=== PATIENT | male | born 1940 | race Caucasian/White ===

== ENCOUNTER 2020-08-28 04:11 | Observation (INO) | payer OTHER ==
[~2020-08-28] VITALS: Ht 170.2 cm; Wt 96.2 kg
[2020-08-28 04:24] VITALS: BP 146/120
[2020-08-28] MEDS ORDERED: ASA81BEC PO (04:54)
[2020-08-28] MEDS ORDERED: BUSPIRONE HCL5 MG PO (04:54)
[2020-08-28] MEDS ORDERED: ZETIA10 MG PO (04:55)
[2020-08-28] MEDS ORDERED: HYDRALAZINE 10M10 MG PO (04:55)
[2020-08-28] MEDS ORDERED: FAMOTIDINE 20 M20 MG PO (04:55)
[2020-08-28] MEDS ORDERED: CARVEDILOL12.5 MG PO (04:55)
[2020-08-28] MEDS ORDERED: COZAAR 25 MG TA25 M1 PO (04:56)
[2020-08-28] MEDS ORDERED: IRON325 M1 PO (04:56)
[2020-08-28 04:57] LABS: ABSOLUTE BASOPHILS 0.1 thou/uL (0.0-0.2); ABSOLUTE EOSINOPHILS 0.3 thou/uL (0.0-0.7); ABSOLUTE MONOCYTES 0.8 thou/uL (0.0-1.2); ABSOLUTE NEUTROPHILS 4.3 thou/uL (1.6-8.1); BASOPHILS 1.5 %; EOSINOPHILS 5.1 %; HEMATOCRIT 45.1 % (42.0-52.0); HEMOGLOBIN 15.4 gm/dL (14.0-18.0); LYMPHOCYTES 15.7 %; MCH 30.2 pg (26.0-34.0); MCHC 34.1 g/dL (28.0-37.0); MCV 88.5 fL (80.0-100.0); MONOCYTES 11.9 %; MPV 8.3 fl. (7.2-11.1); NUCLEATED RBCS 0 /100WBC; PLATELET COUNT* 180 thou/uL (150-400); POLYS 65.8 %; RDW-CV 16.9 % (10.5-14.5); WBC 6.5 thou/uL (4.0-11.0)
[2020-08-28 05:08] LABS: CALCIUM 9.2 mg/dL (8.5-10.1); POTASSIUM 4.5 mmol/L (3.5-5.1)
[2020-08-28 05:13] LABS: URINE BILIRUBIN NEGATIVE (Negative); URINE BLOOD TRACE (Negative); URINE CLARITY CLEAR; URINE COLOR YELLOW; URINE GLUCOSE-RANDOM NEGATIVE (Negative); URINE KETONES NEGATIVE (Negative); URINE LEUKOCYTES-REFLEX NEGATIVE (Negative); URINE NITRITE-REFLEX NEGATIVE (Negative); URINE PROTEIN 1+ (Negative); URINE SPECIFIC GRAVITY 1.025 (1.005-1.030)
[2020-08-28 05:18] LABS: MAGNESIUM 1.5 mg/dL (1.8-2.4); TOTAL BILIRUBIN 1.5 mg/dL (<0.1-1.0); TOTAL PROTEIN 7.1 g/dL (6.4-8.2)
[2020-08-28 09:53] VITALS: BP 175/87
[2020-08-28 10:00] VITALS: BP 187/90
--- NOTE | 2020-08-28 12:14 | EKG ---
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 : 1940 Requested By: Ingrid Calderon Order Number: [id number] MD: Joce Peter Measurements Intervals [place] Rate: 81 P: 10 [place]: 61 QRS: -110 QRSD: 168 T: 39 QT: 444 QTc: 516 Interpretive Statements Sinus rhythm Short [place] interval Right bundle branch block Baseline wander in lead(s) V2 No previous ECG available for comparison Left axis deviation consider left anterior fascicular block or bifascicular block Electronically Signed On 08-28-2020 12:14:08 CDT by Joce Peter [email or web address] <ELECTRONICALLY SIGNED> By: Blanca Peter MD, [facility] 08/28/20 1214 4 0425 Blanca Peter MD, [facility] /EPI
--- NOTE | 2020-08-28 12:15 | EKG ---
[place] [address] ELECTROCARDIOGRAM REPORT Name: CECIL OREILLY Room: [address] M.R.#: [id number] Admission: 08/28/20 Attend Phys: Celina Booker MD Discharge: Date of : 40 Date of Service: 08/28/20520 Report #: [id number] THIS REPORT FOR: //name// [facility] ED Test Date: 2020-08-28 Test Time: 05:21:38 Pat Name: CECIL OREILLY Department: Room: [address] Gender: M Client Representative: DAYA : 1940 Requested By: Ingrid Calderon Order Number: [id number] Reading MD: Joce Peter Measurements Intervals [place] Rate: 84 P: [place]: QRS: -112 QRSD: 153 T: 31 QT: 412 QTc: 488 Interpretive Statements Atrial fibrillation with controlled ventricular response Right bundle branch block with left axis deviation and probable bifascicular block Inferior infarct, old Abnormal lateral Q waves Compared to ECG 08/28/2020 04:25:47 AV block, advanced (high-grade) now present Myocardial infarct finding now present Q waves now present Sinus rhythm no longer present Short [place] interval no longer present Electronically Signed On 08-28-2020 12:15:09 CDT by Joce Peter [email or web address] <ELECTRONICALLY SIGNED> By: Blanca Peter MD, [facility] 08/28/20 1215 0 0 Blanca Peter MD, [facility] /EPI
[2020-08-28 15:40] VITALS: BP 167/80
[2020-08-28 20:00] VITALS: BP 141/76
[2020-08-29 00:22] VITALS: BP 155/69
[2020-08-29 04:46] LABS: CHOLESTEROL 138 mg/dL (<200); HDL CHOLESTEROL 41 mg/dL (>40); LDL CHOLESTEROL 87 mg/dL (<100); TC:HDL 3.4 Ratio (Not establshd); TRIGLYCERIDE 50 mg/dL (<150); VLDL 10 mg/dL (<40)
[2020-08-29 04:47] VITALS: BP 175/82
[2020-08-29 04:51] LABS: SERUM ASSESSMENT CLEAR
[2020-08-29 08:27] VITALS: BP 139/92
--- NOTE | 2020-08-29 14:09 | 2DMMODE ---
[place] [address] 2 D/M-MODE ECHOCARDIOGRAM Name: CECIL OREILLY Room: [address] M.R.#: [id number] Admission: 08/28/20 Attend Phys: Celina Booker MD Discharge: Date of : 40 Date of Service: 08/29/20 1409 Report #: [id number] THIS REPORT FOR: cc: Lew Adair Adam J DO Blick,Salvatore Vidal MD [facility] ~ APPROVED REPORT Study performed: 08/29/2020 10:23:23 EXAM: Comprehensive 2D, Doppler, and color-flow Echocardiogram Patient Location: In-Patient Room #: [facility] Status: routine BSA: 2.07 HR: 81 bpm BP: 139/92 mmHg Rhythm: Atrial Fibrillation Other Information Study Quality: Good Indications Aortic Valve Disease Congestive Heart Failure Mitral Valve Disease 2D Dimensions IVSd: 12.04 (7-11mm) LVOT Diam: 19.60 (18-24mm) LVDd: 50.58 mm PWd: 10.93 (7-11mm) Ascending Ao: 28.04 (22-36mm) LVDs: 34.49 (25-40mm) Aortic Root: 31.53 mm Volumes Left Atrial Volume (Systole) LA ESV Index: 39.20 mL/m2 Aortic Valve AoV Peak Stanford.: 2.23 m/s AO Peak Gr.: 19.90 mmHg LVOT Max P.36 mmHg AO Mean Gr.: 11.08 mmHg LVOT Mean P.05 mmHg LVOT Max V: 1.04 m/s AO V2 VTI: 44.88 cm LVOT Mean V: 0.66 m/[place] [address] 2 D/M-MODE ECHOCARDIOGRAM Name: DENILSONCECIL Room: [address] M.R.#: [id number] Admission: 08/28/20 Attend Phys: Celina Booker MD Discharge: Date of : 40 Date of Service: 08/29/20 1409 Report #: [id number] MIKE (VTI): 1.36 cm2 LVOT V1 VTI: 20.25 cm Mitral Valve MV Mean Gr.: 9.59 mmHg TDI Medial E' Stanford.: 0.05 m/s Lateral E' Stanford.: 0.07 m/s Pulmonary Valve PV Peak Stanford.: 1.09 m/s PV Peak Gr.: 4.73 mmHg Tricuspid Valve RAP Estimate: 5.00 mmHg TR Peak Gr.: 52.27 mmHg RVSP: 57.00 mmHg PA Pressure: 57.00 mmHg Left Ventricle The left ventricle is normal size. There is normal LV segmental wall motion. There is normal left ventricular wall thickness. Left ventricular systolic function is normal. The left ventricular ejection fraction is within the normal range. LVEF is 55-60%. This study is not technically sufficient to allow evaluation of the LV diastolic function due to atrial fibrillation. Right Ventricle The right ventricle is normal size. The right ventricular systolic function is normal. Atria Left atrium is mildly dilated. The right atrium size is normal. Aortic Valve Bioprosthetic aortic valve is present. Mild aortic regurgitation. Mild aortic stenosis. Mitral Valve Severe mitral annular calcification. The mitral valve is normal in structure. Mild mitral regurgitation. Moderate to severe mitral stenosis. Tricuspid Valve The tricuspid valve is normal in structure. Mild tricuspid regurgitation. estimated pa pressure 65 [place] [address] 2 D/M-MODE ECHOCARDIOGRAM Name: DENILSONCECIL Room: [address] Jesenia Ley#: [id number] Admission: 08/28/20 Attend Phys: Celina Booker MD Discharge: Date of : 40 Date of Service: 08/29/20 1409 Report #: [id number] Pulmonic Valve Pulmonic valve is not well visualized. There is no pulmonic valvular regurgitation. Great Vessels The aortic root is normal in size. IVC is normal in size and collapses >50% with inspiration. Pericardium There is no pericardial effusion. <Conclusion> LVEF is 55-60%. Left atrium is mildly dilated. Bioprosthetic aortic valve is present. Mild aortic regurgitation. Mild aortic stenosis. Mild mitral regurgitation. Mild tricuspid regurgitation. estimated pa pressure 65 mm Hg <ELECTRONICALLY SIGNED> By: Salvatore Blair MD, FACC 08/29/20 1409 08 08 Salvatore Blair MD, FACC /INF
[2020-08-29 16:00] VITALS: BP 118/73
[2020-08-29 23:55] VITALS: BP 125/102
[2020-08-30 04:30] VITALS: BP 133/62
[2020-08-30 05:00] LABS: HEMATOCRIT 43.3 % (42.0-52.0); HEMOGLOBIN 14.7 gm/dL (14.0-18.0); MCH 29.6 pg (26.0-34.0); MCHC 33.9 g/dL (28.0-37.0); MCV 87.3 fL (80.0-100.0); MPV 8.4 fl. (7.2-11.1); RBC 4.95 mil/uL (4.50-6.00); RDW-CV 16.4 % (10.5-14.5)
[2020-08-30 05:11] LABS: CALCIUM 8.8 mg/dL (8.5-10.1); POTASSIUM 3.5 mmol/L (3.5-5.1)
--- NOTE | 2020-08-30 07:48 | CON ---
[address] [address] CONSULTATION Name: CECIL OREILLY Room: [address] ADM Jesenia M.R.#: [id number] Admission: 08/28/20 Attend Phys: Celina Booker MD Discharge: Date of : 40 Report #: [id number] THIS REPORT FOR: cc: Lew Adair Adam J DO Biggs, F. Douglas MD [facility] ~ DOC #: [id number] Joce Peter MD [facility] DATE OF CONSULTATION: 08/28/2020 CARDIOLOGY CONSULTATION HISTORY OF PRESENT ILLNESS: I was asked by Dr. Booker to see this 79-year-old white male in cardiology consultation for evaluation and treatment of heart failure with a minimal troponin elevation. This man has a history of coronary artery disease. He is status post coronary artery bypass graft surgery, four-vessel in 1998. He has also had an aortic valve replacement for aortic stenosis in 2008 that was done at [facility]. He has chronic atrial fibrillation. He is status post coronary stents. Those I believe were done at the hospital at the [facility]. He has essential hypertension, hyperlipidemia and rbbn-xt-jzjqncuh mitral stenosis that is uncorrected. He has been having increasing dyspnea on exertion with some 2-pillow orthopnea, but paroxysmal nocturnal dyspnea as well as edema for a year. He has not been seeing a superintendent nonselling, although he has been seen in the past, both at [place] and at [facility]. Last night he awakened from sleep short of breath and became very anxious and was brought to the hospital and was found to be in heart failure. His chest x-ray showed heart failure. There was also cardiomegaly. His BNP was 7610. Troponin elevation initially was 0.15 and then 0.17 and 0.18 at 0440, 0622 and 1020 respectively. The initial one was at 4:40 a.m. and it was 1.5. He did not have any chest pain, however. He has not had chest pain as part of this whole syndrome. This has been going on for a year. He has been given diuretics and now feels much better. He has made a lot of urine and is breathing much easier and actually feels much better than he has felt in some time. He did lose his to AMYID-19 in April and he has been somewhat anxious and depressed. HOME MEDICATIONS: Include aspirin 81 mg daily, buspirone 5 mg b.i.d., carvedilol 12.5 mg b.i.d., Zetia 10 mg daily, Pepcid 20 mg daily, hydralazine 10 mg p.r.n. hypertension he is to take 10 mg p.o. q. 8 hours, ferrous sulfate 325 mg daily, losartan 50 mg daily. ALLERGIES: HE IS ALLERGIC TO PENICILLIN. SOCIAL HISTORY: He does not smoke or drink, but he did [place] [address] [address] CONSULTATION Name: CECIL OREILLY Room: [address] ADM Jesenia Ley#: [id number] Admission: 08/28/20 Attend Phys: Celina Booker MD Discharge: Date of : 40 Report #: [id number] FAMILY HISTORY: His mother of coronary artery disease. Father of a CVA. REVIEW OF SYSTEMS: Positive for the symptoms described in the history of present illness, otherwise negative for some 40 different complaints in 14 different system categories. Please see our review of system form for details and negatives in review of systems. His D-dimer was mildly elevated. A CTA of the chest for pulmonary embolism was negative. D-dimer is 1.27. PHYSICAL EXAMINATION: GENERAL: He presents as a well-developed, well-nourished elderly white male in no acute distress. VITAL SIGNS: His pulse was 80, blood pressure 175/87, respirations 21 and regular, temperature 97.1. HEENT: His head was atraumatic. Eyes clear. NECK: Supple. There is no jugular venous distention or hepatojugular reflux. Thyroid is not enlarged. There is no adenopathy. SKIN: Warm and dry. Mucous membranes are moist. LUNGS: Clear to auscultation and percussion. HEART: Revealed normal first and second heart sound. There is soft S4. There is no S3. There is a 2/6 systolic murmur heard in the mitral area that sounds more like mitral regurgitation than an aortic stenosis murmur. There is a 1/6 systolic ejection murmur in the aortic area. BACK: There is no S4. There is no S3. The rhythm was slightly irregular. ABDOMEN: Soft, flat, nontender. There are no palpable masses and no organomegaly. EXTREMITIES: Reveal no cyanosis or clubbing. There is 2+ pitting edema on the left leg and 1+ on the right leg. NEUROLOGIC: The patient mentated normally, talked normally and moved all extremities normally. NOTE: This man does have chronic atrial fibrillation. He is on aspirin. IMPRESSION: 1. Congestive heart failure that is acute on chronic, probably systolic and diastolic. 2. Coronary artery disease. 3. Status post coronary artery bypass graft surgery, four-vessel. 4. Chronic atrial fibrillation. 5. Status post coronary stents. 6. Status post aortic valve replacement with a bioprosthesis. 7. Essential hypertension. 8. Hyperlipidemia. 9. Mitral stenosis that is mild to moderate. [address] [place] [address] CONSULTATION Name: CECIL OREILLY Room: [address] Jesenia M.R.#: [id number] Admission: 08/28/20 Attend Phys: Celina Booker MD Discharge: Date of : 40 Report #: [id number] 10. Mitral regurgitation that is mild and tricuspid regurgitation that is said to be mild. RECOMMENDATION: He should get an echo and a stress test. We will get another troponin, but I think this elevation is likely due to his heart failure, which is the predominant issue here. He will get a Lexiscan Cardiolite stress test and an echo. Thank you very much for asking me to see the patient. If there are any questions, please feel free to contact me. MD ANNI Zaman DFB/RAN <ELECTRONICALLY SIGNED> By: Blanca Peter MD, ABHINAV 08/30/20 0748 1033 1240F. Joce Peter MD, FACJeanna /nt
--- NOTE | 2020-08-30 11:40 | CARDNUC ---
[place] [address] CARDIAC NUCLEAR IMAGING REPORT Name: CECIL OREILLY Room: [address] M.R.#: [id number] Admission: 08/28/20 Attend Phys: Celina Booker MD Discharge: Date of : 40 Date of Service: 08/30/20 1139 Report #: [id number] THIS REPORT FOR: cc: Lew Adair Adam J DO Liston,Bob Bee MD [facility] ~ APPROVED REPORT Imaging Protocol: Stress Tc-99m/Rest Tc-99m 2 days Study performed: 08/28/2020 11:59:00 Indication: DYSPNEA, ELEVATED TROPONINS, CHF. Patient Location: In-Patient Room #: 206 Stress Tech: Nicky Lewis Stress Nurse: Stacia Lopez RN Ht: 5 ft 7 in Wt: 212 lbs BSA: 2.07 m2 BMI: 33.20 Medical History Medical History: Atrial Fibrillation, CAD s/p CABG, CAD s/p stent, DYSPNEA, ELEVATED TROPONINS, HX CARDIOVERSION, ORTHOPNEA, PND, AORTIC VALVE REPLACEMENT, MITRAL STENOSIS, EDEMA, CARDIOMEGALY, SYSTOLIC MURMUR, RBBB, HTN, HLD, PAST SMOKER, OBESITY. Medications: Hydralazine, Atorvastatin, Carvedilol, Lasix, home meds include ASA 81 mg, Zetia. Allergies: PNC, SHELLFISH Cardiac Risk Factors: Age, HTN, Hyperlipidemia, SOB, AFib, Past Smoker, elevated troponins, CHF, RBBB, systolic murmur, mitral stenosis. Previous Cardiac Procedures: CABG, PCI,Cardioversion, Aortic valve replacement. Pretest Chest Pain Characteristics: No chest pain Exercise History: Sedentary Physical Disabilities: Weakness, instability, systolic murmur. Meds Held (24 hrs): Carvedilol Resting Data Rest SPECT myocardial perfusion imaging was performed in supine position 45 minutes following the intravenous injection of 30.1 mCi of Tc-99m Sestamibi. Time of rest injection: 08:35 The images were gated to evaluate regional [place] [address] CARDIAC NUCLEAR IMAGING REPORT Name: CECIL OREILLY Room: [address] Jesenia Ley#: [id number] Admission: 08/28/20 Attend Phys: Celina Booker MD Discharge: Date of : 40 Date of Service: 08/30/20 1139 Report #: [id number] left ventricular ejection fraction. Administration Route: IV Administration Site: Right AC Pharmacologic Stress Pharmacologic stress test was performed by injecting Regadenoson 0.4 mg IV push over 10-15 seconds immediately followed by the intravenous injection of 33.1 mCi of Tc-99m Sestamibi. Time of stress injection: 13:45 Date: 08/29/2020 Administration Route: IV Administration Site: Right AC Heart Rate at time of stress injection: 135 bpm. Gated Stress SPECT was performed 50 minutes after stress injection. The images were gated to evaluate regional wall motion and calculate left ventricular ejection fraction. Stress Test Details Stress Test: Pharmacologic stress testing performed using 0.4 mg of regadenoson per 5 mL given IV over 10 seconds. Reason for pharmacologic stress test: Weakness, instability, systolic murmur.. HR Max Heart Rate (APMHR): 141 bpm Resting HR: 81 bpm Target HR (85% APMHR): 119 bpm Max HR Achieved: 135 bpm % of APMHR: 95 Recovery HR: 97 bpm BP Resting BP: 161/91 mmHg Max BP: 186/84 mmHg Recovery BP: 152/85 mmHg ECG Resting ECG: Sinus Rhythm, RBBB Stress ECG: Sinus Tachycardia, RBBB ST Change: None Arrhythmia: None Recovery ECG: Sinus Rhythm, RBBB Recovery ST Change: None Recovery Arrhythmia: None Clinical Reason for Termination: Completed protocol Stress Symptoms: Dyspnea, Dizzy. Exercise duration: 00 min 00 [place] [address] CARDIAC NUCLEAR IMAGING REPORT Name: CECIL OREILLY Room: [address] M.RGibran#: [id number] Admission: 08/28/20 Attend Phys: Celina Booker MD Discharge: Date of : 40 Date of Service: 08/30/20 1139 Report #: [id number] Exercise capacity: 1.00 METs The patient tolerated Lexiscan infusion without cardiac symptoms. Nurse Comments A 79 year old male inpatient tolerated a sitting lexiscan Nuclear Stress Test. Recovery unremarkable. Patient was stable and stated he felt good when escorted via wheelchair to Nuclear Medicine for imaging. Stress ECG Conclusion The baseline twelve-lead EKG shows sinus rhythm with right bundle branch block. EKGs obtained during and post Lexiscan infusion show sinus rhythm and sinus tachycardia with right bundle branch block. There were no significant ST segment changes when compared to baseline. There were no stress-induced arrhythmias. Study Quality Study: Good Artifact: No artifact Study Data At rest, the left ventricular ejection fraction was 67%.. Post stress, the left ventricular ejection was 65%.. TID = 0.97. Perfusion Perfusion images obtained at rest and post Lexiscan stress show a small sized severe intensity fixed defect involving the mid to apical inferior wall. No other significant fixed or reversible defects are identified. Wall Motion Global LV systolic function is preserved. There is a septal wall motion abnormality consistent with underlying bundle branch block. Nuclear Conclusion ECG Findings: negative for ischemia Clinical Findings: negative for ischemia Nuclear Findings: negative for ischemia Exercise Capacity: not assessed Left Ventricular Function: Preserved Perfusion study show evidence of prior mid to apical inferior wall infarct. There were no reversible defects to suggest ongoing ischemia. Global LV function is preserved [place] [address] CARDIAC NUCLEAR IMAGING REPORT Name: CECIL OREILLY Room: [address] Jseenia Ley#: [id number] Admission: 08/28/20 Attend Phys: Celina Booker MD Discharge: Date of : 40 Date of Service: 08/30/20 1139 Report #: [id number] abnormalities as outlined above. This is not a high risk study. <Conclusion> The baseline twelve-lead EKG shows sinus rhythm with right bundle branch block. EKGs obtained during and post Lexiscan infusion show sinus rhythm and sinus tachycardia with right bundle branch block. There were no significant ST segment changes when compared to baseline. There were no stress-induced arrhythmias. <ELECTRONICALLY SIGNED> By: Bob Grady MD, FACC 08/30/20 1139 113 113 Bob Grady MD, FACC /INF
[2020-08-30 12:00] VITALS: BP 910/40
[2020-08-30] MEDS ORDERED: ATORVASTATIN CA20 MG PO (13:18)
[2020-08-30] MEDS ORDERED: POTASSIUM20 PO (13:18)
[2020-08-30] MEDS ORDERED: LASIX 40 MG TAB40 M1 PO (13:18)
[2020-08-30 13:40] VITALS: BP 910/40
[2020-08-30 14:19] VITALS: BP 910/40
== END 2020-08-30 14:53 | disposition home or self-care (01) ==
LOC: M.ERS 04:11 → M.2W 06:53 → M.TBA-ER 06:53 → M.2W 10:01
PROVIDERS: Emergency Medicine; Internal Medicine; Internal Medicine Cardiovascular Disease; ADMIT Family Medicine; ATTEND Family Medicine
DX: R06.00 Dyspnea, unspecified (principal); Z20.822 Contact with and (suspected) exposure to COVID-19; I25.10 Atherosclerotic heart disease of native coronary artery without angina pectoris; I10 Essential (primary) hypertension; K21.9 Gastro-esophageal reflux disease without esophagitis; F41.9 Anxiety disorder, unspecified; I11.0 Hypertensive heart disease with heart failure; I50.9 Heart failure, unspecified; E78.5 Hyperlipidemia, unspecified; Z95.1 Presence of aortocoronary bypass graft; I48.20 Chronic atrial fibrillation, unspecified; R74.8 Abnormal levels of other serum enzymes; Z79.82 Long term (current) use of aspirin; Z79.899 Other long term (current) drug therapy

== ENCOUNTER → 2020-10-05 | Outpatient (CLI) | payer OTHER ==
[~2020-10-05] MED LIST: ASA81BEC PO; ATORVASTATIN CA20 MG PO; BUSPIRONE HCL5 MG PO; CARVEDILOL12.5 MG PO; COZAAR 25 MG TA25 M1 PO; FAMOTIDINE 20 M20 MG PO; HYDRALAZINE 10M10 MG PO; IRON325 M1 PO; LASIX 40 MG TAB40 M1 PO; POTASSIUM20 PO; ZETIA10 MG PO
== END ==
LOC: M.ULTRA 11:33
PROVIDERS: ATTEND Family Medicine
DX: I73.9 Peripheral vascular disease, unspecified (principal); M79.672 Pain in left foot; M79.671 Pain in right foot; I10 Essential (primary) hypertension; I25.10 Atherosclerotic heart disease of native coronary artery without angina pectoris; R60.0 Localized edema

== ENCOUNTER 2020-11-20 09:39 | Inpatient (IN) | payer OTHER ==
[~2020-11-20] VITALS: Ht 180.3 cm; Wt 90.3 kg
[2020-11-20 09:41] VITALS: BP 118/55
[2020-11-20] MEDS ORDERED: LASIX 40 MG TAB40 MG PO (09:53)
[2020-11-20 10:08] LABS: ABSOLUTE EOSINOPHILS 0.2 thou/uL (0.0-0.7); ABSOLUTE LYMPHOCYTES 0.9 thou/uL (0.8-5.3); ABSOLUTE MONOCYTES 0.7 thou/uL (0.0-1.2); ABSOLUTE NEUTROPHILS 3.3 thou/uL (1.6-8.1); EOSINOPHILS 4.4 %; HEMATOCRIT 40.1 % (42.0-52.0); HEMOGLOBIN 13.2 gm/dL (14.0-18.0); LYMPHOCYTES 18.1 %; MCH 29.5 pg (26.0-34.0); MCHC 32.8 g/dL (28.0-37.0); MCV 89.7 fL (80.0-100.0); MONOCYTES 12.7 %; MPV 8.9 fl. (7.2-11.1); NUCLEATED RBCS 0 /100WBC; PLATELET COUNT* 114 thou/uL (150-400); POLYS 63.8 %; RBC 4.47 mil/uL (4.50-6.00); WBC 5.1 thou/uL (4.0-11.0)
[2020-11-20 10:16] LABS: CALCIUM 7.9 mg/dL (8.5-10.1); CREATININE 1.1 mg/dL (0.6-1.3); POTASSIUM 4.5 mmol/L (3.5-5.1)
[2020-11-20 10:20] LABS: ALBUMIN 3.2 g/dL (3.4-5.0); TOTAL BILIRUBIN 1.7 mg/dL (<0.1-1.0); TOTAL PROTEIN 6.5 g/dL (6.4-8.2)
[2020-11-20 14:44] VITALS: BP 148/55
[2020-11-20 17:41] VITALS: BP 128/56
--- NOTE | 2020-11-20 18:55 | NUR ---
1700: PT'S TROPONIN LEVELS STILL ELEVATED. RN CALLED PROVIDER AND PROVIDER AWARE OF NEW TROPONIN LEVEL. NO NEW ORDERS AT THIS TIME, CONTINUE TO MONITOR PT. IF PT BECOMES SYMPTOMATIC WITH BRADYCARDIA OR HYPOTENSION, STARTS TO HAVE CHEST PAIN, OR ANY OTHER CARDIAC PHYSIOLOGICAL CHANGES, ALERT PROVIDER AND PLAN OF CARE WILL BE ADJUSTED NECESSARY. PT VSS, DENIES CHEST PAIN, DENIES N/V. PT REMAINS ASYMPTOMATIC AT THIS TIME. WILL CONTINUE TO MONITOR.
[2020-11-20 21:09] VITALS: BP 141/59
[2020-11-21] VITALS (14 sets, daily range): BP systolic 98–1090; BP diastolic 41–106
[2020-11-21 03:55] LABS: ABSOLUTE BASOPHILS 0.1 thou/uL (0.0-0.2); ABSOLUTE EOSINOPHILS 0.3 thou/uL (0.0-0.7); ABSOLUTE LYMPHOCYTES 1.2 thou/uL (0.8-5.3); ABSOLUTE MONOCYTES 0.8 thou/uL (0.0-1.2); ABSOLUTE NEUTROPHILS 3.4 thou/uL (1.6-8.1); BASOPHILS 1.1 %; EOSINOPHILS 4.8 %; HEMOGLOBIN 12.6 gm/dL (14.0-18.0); LYMPHOCYTES 20.1 %; MCH 29.5 pg (26.0-34.0); MCHC 33.2 g/dL (28.0-37.0); MCV 88.9 fL (80.0-100.0); MONOCYTES 14.6 %; MPV 9.2 fl. (7.2-11.1); NUCLEATED RBCS 0 /100WBC; PLATELET COUNT* 102 thou/uL (150-400); POLYS 59.4 %; RBC 4.27 mil/uL (4.50-6.00); RDW-CV 16.7 % (10.5-14.5); WBC 5.7 thou/uL (4.0-11.0)
[2020-11-21 04:26] LABS: ANION GAP 9 mmol/L (7-16); BUN 20 mg/dL (7-18); CALCIUM 8.4 mg/dL (8.5-10.1); CHLORIDE 102 mmol/L (98-107); CHOLESTEROL 87 mg/dL (<200); CO2 24 mmol/L (21-32); GLUCOSE 83 mg/dL (70-99); HDL CHOLESTEROL 39 mg/dL (>40); LDL CHOLESTEROL 42 mg/dL (<100); POTASSIUM 4.4 mmol/L (3.5-5.1); SERUM ASSESSMENT CLEAR; SODIUM 135 mmol/L (136-145); TC:HDL 2.2 Ratio (Not establshd); TRIGLYCERIDE 31 mg/dL (<150); VLDL 6 mg/dL (<40)
--- NOTE | 2020-11-21 06:09 | NUR ---
PT IS ABLE TO COMMUNICATE HIS NEEDS TO STAFF EFFECTIVELY. HE HAS DENIED THE NEED FOR PAIN MEDICATION UP TO THIS TIME. HE HAS DENIED ANY CHEST PAIN UP TO THIS TIME, WELL. HE HAS BEEN NPO SINCE MIDNIGHT FOR A CARDIOLOGY CONSULT TODAY.
--- NOTE | 2020-11-21 11:44 | EKG ---
[place] [address] ELECTROCARDIOGRAM REPORT Name: CECIL OREILLY JR Room: [address] ADM IN [facility].#: [id number] Admission: 11/20/20 Attend Phys: Alex Skinner Discharge: Date of : 40 Date of Service: 11/20/20 0954 Report #: [id number] THIS REPORT FOR: //name// 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 : 1940 Requested By: Leobardo Pineda Order Number: [id number] MD: Mariano Sims Measurements Intervals [place] Rate: 58 P: [place]: QRS: -114 QRSD: 180 T: 24 QT: 532 QTc: 523 Interpretive Statements Atrial fibrillation with a slow ventricular response RBBB and LAFB Baseline wander in lead(s) II,III,aVF Compared to ECG 08/28/2020 05:21:38 Ventricular rate has slowed Myocardial infarct finding no longer present Q waves no longer present Electronically Signed On 11-21-2020 11:44:18 CDT by Mariano Sims [email or web address] <ELECTRONICALLY SIGNED> By: Mariano Sims MD, [facility] 11/21/20 1144 0954 0954 Mariano Sims MD, [facility] /EPI
--- NOTE | 2020-11-21 11:53 | EKG ---
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 ANGEL : 1940 Requested By: Dontae Spears Order Number: [id number] Joaquim MD: Mariano Sims Measurements Intervals [place] Rate: 58 P: [place]: QRS: -114 QRSD: 177 T: 30 QT: 525 QTc: 516 Interpretive Statements Wide QRS rhythm at a mildly bradycardic rate RBBB and LAFB Compared to ECG 11/20/2020 09:54:48 Junctional rhythm is suggestive Electronically Signed On 11-21-2020 11:52:43 CDT by Mariano Sims [email or web address] <ELECTRONICALLY SIGNED> By: Mariano Sims MD, [facility] 11/21/20 1152 0318 0318 Mariano Sims MD, [facility] /EPI
--- NOTE | 2020-11-21 13:45 | 2DMMODE ---
[place] [address] 2 D/M-MODE ECHOCARDIOGRAM Name: DENILSONCECIL REGAN Room: [address] IN [facility]#: [id number] Admission: 11/20/20 Attend Phys: Alex Skinner Discharge: Date of : 40 Date of Service: 11/21/20 1345 Report #: [id number] THIS REPORT FOR: cc: Lew Adair Adam J DO Holkins,Mariano Whitmore MD [facility] ~ APPROVED REPORT Study performed: 11/21/2020 11:34:36 EXAM: Comprehensive 2D, Doppler, and color-flow Echocardiogram Patient Location: In-Patient Room #: [facility] Status: routine BSA: 2.10 HR: 53 bpm BP: 131/58 mmHg Rhythm: NSR Other Information Study Quality: Good Indications Congestive Heart Failure Syncope 2D Dimensions IVSd: 11.49 (7-11mm) LVOT Diam: 18.84 (18-24mm) LVDd: 53.85 mm PWd: 12.84 (7-11mm) Ascending Ao: 27.37 (22-36mm) LVDs: 32.28 (25-40mm) Aortic Root: 33.22 mm Volumes Left Atrial Volume (Systole) LA ESV Index: 50.60 mL/m2 Aortic Valve AoV Peak Stanford.: 2.18 m/s AO Peak Gr.: 19.09 mmHg LVOT Max P.01 mmHg AO Mean Gr.: 11.68 mmHg LVOT Mean P.84 mmHg LVOT Max V: 1.00 m/s AO V2 VTI: 49.83 cm LVOT Mean V: 0.61 m/s MIKE (VTI): 1.31 cm2 LVOT V1 VTI: 23.37 [place] [address] 2 D/M-MODE ECHOCARDIOGRAM Name: CECIL OREILLY JR Room: [address]#: [id number] Admission: 11/20/20 Attend Phys: Alex Skinner Discharge: Date of : 40 Date of Service: 11/21/20 1345 Report #: [id number] Mitral Valve MV Mean Gr.: 10.55 mmHg TDI Lateral E' Stanford.: 0.08 m/s Pulmonary Valve PV Peak Stanford.: 0.83 m/s PV Peak Gr.: 2.76 mmHg Tricuspid Valve RAP Estimate: 15.00 mmHg TR Peak Gr.: 51.41 mmHg RVSP: 66.00 mmHg PA Pressure: 66.00 mmHg Left Ventricle The left ventricle is normal size. There is normal LV segmental wall motion. Mild concentric left ventricular hypertrophy. Left ventricular systolic function is normal. The left ventricular ejection fraction is within the normal range. LVEF is 55-60%. Right Ventricle Right ventricle is mildly dilated. The right ventricular systolic function is normal. Atria Left atrium is moderately dilated. Right atrium is mildly dilated. Aortic Valve Moderate aortic valve sclerosis. Bioprosthetic aortic valve is present. Mild aortic regurgitation. Mild aortic stenosis. Mitral Valve Moderate mitral annular calcification. Mild to moderate mitral regurgitation. No evidence of mitral valve stenosis. Tricuspid Valve The tricuspid valve is normal in structure. Mild tricuspid regurgitation. Moderate pulmonary hypertension. Pulmonic Valve The pulmonary valve is normal in structure. There is no pulmonic valvular regurgitation[place] [address] 2 D/M-MODE ECHOCARDIOGRAM Name: CECIL OREILLY JR Room: [address] IN [facility]#: [id number] Admission: 11/20/20 Attend Phys: Alex Skinner Discharge: Date of : 40 Date of Service: 11/21/20 1345 Report #: [id number] The aortic root is normal in size. IVC is dilated and collapses <50% with inspiration. Pericardium There is no pericardial effusion. <Conclusion> The left ventricle is normal size. Mild concentric left ventricular hypertrophy. Left ventricular systolic function is normal. The left ventricular ejection fraction is within the normal range. LVEF is 55-60%. Right ventricle is mildly dilated. Left atrium is moderately dilated. Right atrium is mildly dilated. Moderate aortic valve sclerosis. Mild aortic regurgitation. Mild aortic stenosis. Moderate mitral annular calcification. Mild to moderate mitral regurgitation. No evidence of mitral valve stenosis. The tricuspid valve is normal in structure. Mild tricuspid regurgitation. Moderate pulmonary hypertension. IVC is dilated and collapses <50% with inspiration. There is no pericardial effusion. There is normal LV segmental wall motion. Bioprosthetic aortic valve is present. <ELECTRONICALLY SIGNED> By: Mariano Sims MD, FACC 11/21/20 1345 1345 1345 Mariano Sims MD, FACC /INF
--- NOTE | 2020-11-21 14:50 | NUR ---
Pt is A&O. Resides at home. Independent. Pt has a cane and walker that he can use for mobility. Hx of [facility]. No hx of SNF. Goal is home at dc. Anticipate dc tomorrow. Pt having heart cath today.
--- NOTE | 2020-11-21 19:33 | NUR ---
Pt on bedrest since angiogram. Bedrest until MN. Muñoz draining clear yellow urine. Pt c/o leaking at muñoz. Muñoz to remain until off bedrest (muñoz placed d/t retention while on bedrest). VSS. Will continue to monitor.
[2020-11-22] VITALS (10 sets, daily range): BP systolic 82–112; BP diastolic 37–73
[2020-11-22 01:14] LABS: HEMATOCRIT 26.2 % (42.0-52.0); MCH 29.8 pg (26.0-34.0); MCHC 33.5 g/dL (28.0-37.0); MCV 88.8 fL (80.0-100.0); NUCLEATED RBCS 0 /100WBC; PLATELET COUNT* 109 thou/uL (150-400); RBC 2.95 mil/uL (4.50-6.00); RDW-CV 16.7 % (10.5-14.5); WBC 6.8 thou/uL (4.0-11.0)
[2020-11-22 01:17] LABS: CALCIUM 7.8 mg/dL (8.5-10.1); CREATININE 1.1 mg/dL (0.6-1.3); POTASSIUM 4.6 mmol/L (3.5-5.1)
[2020-11-22 01:19] LABS: HEMOGLOBIN 8.8 gm/dL (14.0-18.0)
[2020-11-22 04:06] LABS: ABSOLUTE LYMPHOCYTES 0.6 thou/uL (0.8-5.3); ABSOLUTE MONOCYTES 0.2 thou/uL (0.0-1.2)
[2020-11-22 04:07] LABS: PLATELET ESTIMATE DECREASED
--- NOTE | 2020-11-22 04:48 | NUR ---
AT START OF SHIFT NURSE ASSESSED CATH SITES, LEFT GROIN CATH SITE WAS FIRM TO TOUCH, NO BUISING OR DRAINAGE NOTED. WHEN NURSE REASSESSED LT GROIN SITE AGAIN, THE FIRMNESS HAD SPREAD TOWARDS THE THIGHT AND BRUISING WAS NOTED. TENDER TO TOUCH. DR ARIAS WAS NOTIFIED OF THE FINDSINGS AND ORDERED AN H&H AND 1 BOLUS OF FLUIDS. HGB WENT FROM 12.[address] ARIAS WAS NOTIFIED, DR ORDERED ANOTHER H&H IN 6HRS AND TO HOLD LOVENOX. NURSE REPORTED FINDINGS TO CHARGE NURSE AND POT FEEDER.
[2020-11-22 06:50] LABS: HEMOGLOBIN 8.2 gm/dL (14.0-18.0)
[2020-11-22 08:16] LABS: APTT 28.1 Seconds (25.0-31.3); INR 1.3; PROTIME 13.5 Seconds (9.20-11.50)
--- NOTE | 2020-11-22 11:49 | EKG ---
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
--- NOTE | 2020-11-22 12:25 | NUR ---
Heart cath yesterday. Pt developed hemotoma overnight. Anticipate dc in a few days, Therapies ordered.
[2020-11-22 16:04] LABS: HEMATOCRIT 24.8 % (42.0-52.0); HEMOGLOBIN 7.9 gm/dL (14.0-18.0)
--- NOTE | 2020-11-22 16:24 | CARD ---
[address] [address] CARDIAC CATH REPORT Name: CECIL OREILLY JR Room: [address] IN ..#: [id number] Admission: 11/20/20 Attend Phys: Gabriella Prescott Discharge: Date of : 40 Report #: [id number] THIS REPORT FOR: cc: Lew Adair Adam J DO Holkins, John M. MD [facility] ~ APPROVED REPORT Study performed: 11/21/2020 14:18:17 Patient Details Patient Status: In-Patient Room #: [facility] The patient is a 80 year-old male Event Personnel Dr. Mariano Sims MD: Heel Lining Paster Eryn Rivera RN: Attending Psychiatrist Em Burch RN, CVRN-BC: Monitor Vielka Segrua RT(R): Scrub Dr. Sims can filling room sweeper and Dr. Grady clerk supervisor Procedures Performed Coronary Angiogram only., Access Femoral Vein (right), Access Femoral Artery (left), Left femoral access, Access Radial Artery (right) Indication Non-STEMI , Syncope Risk Factors Peripheral Vascular Disease, Hypercholesterolemia, Hypertension, Tobacco History () Previous Procedures/Diagnoses Previous Valve Surgery Procedure Narrative The patient was brought electively to the Cardiac Catheterization Laboratory and was prepped and draped in a sterile manner. The left femoral was infiltrated with 2% Lidocaine subcutaneous anesthesia. A 6 Fr Solomon sheath was inserted into the Left Femoral Artery. Coronary angiography was performed using coronary diagnostic catheters. The right coronary system was accessed and visualized with a 5Fr JR4 RB catheter. The left coronary [place] [address] CARDIAC CATH REPORT Name: CECIL OREILLY JR Room: [address]#: [id number] Admission: 11/20/20 Attend Phys: Gabriella Prescott Discharge: Date of : 40 Report #: [id number] visualized with a 5Fr JL4 catheter. Hemostasis was obtained with manual pressure following sheath removal without any complications. A hematoma occurred. Procedure was technically complex by virtue of severe peripheral vascular disease complicating access. I was unable to achieve access via the right femoral site. The right radial site was accessed but with marked tortuosity in the thoracic aorta making it impossible to rotate and manipulate catheters in the ascending aorta. This approach was abandoned. With Dr. Grady's assistance, we achieved cannulation and access of the central aorta via the left femoral site with a low access point. Following the procedure, there was a moderate size left femoral hematoma which was largely removed via manual compression. A sterile dressing was applied, and the patient was transferred to his room in satisfactory condition Intraoperative Conscious Sedation Sedation start time: 14:51 Case end Time: 17:55 No Sedation Given Fluoro Time: 17.1 minutes Dose: DAP 117040 cGycm2 1529 mGy Contrast Type and Amount: omnipaque 150 Diagnostic Cath Left Main 75% distal left main coronary stenosis LAD 80% proximal with 100% mid vessel occlusion Circumflex 80% proximal with 100% mid vessel occlusion Right Coronary Nondominant vessel with 80% tubular mid vessel narrowing Left Ventriculography Left Ventriculography was not performed. Hemodynamics The aortic pressure is 193/87 mmHg with a mean of 130 mmHg. Conclusion 1. Severe multivessel coronary artery disease characterized by the following: A 75% distal left main coronary artery stenosis B 80% proximal and 100% mid LAD occlusion B 80% proximal and 100% [place] [address] CARDIAC CATH REPORT Name: CECIL OREILLY JR Room: [address]#: [id number] Admission: 11/20/20 Attend Phys: Gabriella Prescott Discharge: Date of : 40 Report #: [id number] D nondominant right coronary artery with 80% tubular mid vessel narrowing 2. Moderate systemic systolic hypertension throughout the study 3. Difficult access with a moderate size left femoral hematoma post procedure Recommendations Cardiac Risk Reduction Program Diagnostic Cath Approved by: Mariano Sims MD Date/Time: 11/22/2020 16:18:26 <ELECTRONICALLY SIGNED> By: Mariano Sims MD, [facility] 11/22/20 1624 1624 1624Mariano Sims MD, FACC /INF
--- NOTE | 2020-11-22 20:50 | NUR ---
ASSUMED CARE OF PT AT 0715, RECEIVED REPORT FROM JUANA HARTMANN. UPON RECEIVING REPORT, THE NIGHT RN INFORMED THIS RN THAT THE PT'S L GROIN SITE HAD A LARGE BRUISE AND WAS SWOLLEN, THE BRUISE WENT DOWN TO THE PT'S INNER THIGH. THIS RN THEN WENT TO THE BEDSIDE TO LOOK AT THE PT'S GROIN SITE. THE PT'S L GROIN WAS EDEMATOUS, BRUISED, TENDER TO TOUCH, AND TAUNT FROM FLUID/PRESSURE. CARDIOLOGY AND HOSPITALIST STEPHON AND SHAHRIAR HADDAD IS AT THE BEDSIDE. THIS RN BEGAN TO HOLD PRESSURE TO THE L GROIN SITE. PT'S BP IS SOFT WITH A READING OF 84/49, HR; 62. PT APPEARS PALE IN APPEARANCE AND CONFUSED. PT IS A&OX1 TO SELF WITH CONFUSION AND AGITATION. PT RECEIVED SEDATION THE DAY PRIOR FOR THE CARDIAC CATH PROCEDURE AND THE PT'S DAUGHTER, CHEY, INFORMED THIS RN THAT SEDATION WILL CAUSE THE PT TO HAVE A GREAT AMOUNT OF CONFUSION FOR A DAY OR SO AFTER RECEIVING THE MEDICATION. UNSURE IF THE CONFUSION IS FROM THE LOW BLOOD PRESSURE OR IF THE CONFUSION IS FROM TME MEDICATION HE RECEIVED THE DAY PRIOR. PT IS AFEBRILE, HAS COMPLAINTS OF PAIN TO THE L GROIN SITE, PT ON BEDREST TO STOP BLEEDING. LUNGS ARE CLEAR/DIMINISHED, RA, SPO2 95% AND GREATER, RESPIRATIONS ARE REGULAR. S1S2 HEARD, PT HAS PALPABLE RADIAL PULSES, BUT DOPPLED THE BILAT PEDAL PULSES, L PEDAL PULSES ARE WEAKER THAN THE R. PT IN AFIB WITH BBB, HR IN THE 60S, AND BPS SOFT; 80S/40S. HYPOACTIVE BSx4, DISTANT SOUNDING D/T BLOOD VOLUME AND HEMATOMA. PT HAS A VALDIVIA TO DEPENDENT DRAINAGE WITH NO LOOPS OR KINKS. URINE IS DARK YELLOW TO TEA COLORED. WILL MONITOR CLOSELY TO ENSURE PT IS ABLE TO EMPTY BLADDER FULLY WITH HEMATOMA. PT IS CONTINENT OF BOTH BOWEL AND BLADDER. OTHER THAN THE SURGICAL PUNCTURE SITES AND HEMATOMA, NO SKIN ISSUES. PT DOES HAVE A SKIN TEAR TO THE L GROIN FROM DRESSING BEING PULLED OFF. ONE UNIT OF pRBCS ORDERED AND TO BE INFUSED. ONCE INFUSED WILL RECHECK THE H/H FOR HEMO STATUS, THEN WILL MOST LIKELY TRANSFUSE A SECOND UNIT OF pRBCS. HEMATOMA OUTLINED AND MONITOR TO SEE HOW FAST HEMATOMA IS GROWING. US ORDERED AND JUANA MERIDA INFORMED ULTRASOUND THAT A STAT ULTRASOUND NEEDED IN PT'S ROOM TO EVALUATE HEMATOMA. JUANA MERIDA PLACED A 18G RFA PIV FOR BLOOD TRANSFUSION. RN MONITORING CLOSELY. WILL CONTINUE TO MONITOR AND MAKE CHANGES NECESSARY. GREETING CARD MAKER AT THE BEDSIDE. THIS RN CALLED AND RECEIVED CONSENT FROM PT'S DPOA FOR BLOOD AND UPDATED FAMILY ON THE PT'S CONDITION AND EVENTS AND CARE PLAN. FAMILY AGREEABLE AND WILL CONTINUE TO MONITOR.
--- NOTE | 2020-11-22 22:30 | NUR ---
The patient is alert to self. afib on the monitor. transfers x2. rt groin incision dressing intact. left groin incision hematoma continues. No bleeding. left leg swellinig noted. pulses with doppler.
[2020-11-23] VITALS (7 sets, daily range): BP systolic 102–125; BP diastolic 37–50
[2020-11-23 05:29] LABS: HEMOGLOBIN 8.5 gm/dL (14.0-18.0)
[2020-11-23 05:37] LABS: CALCIUM 7.8 mg/dL (8.5-10.1); POTASSIUM 5.3 mmol/L (3.5-5.1)
--- NOTE | 2020-11-23 13:50 | NUR ---
Anticipate dc in a few days. Therapies to see once cleared by cardiology.
--- NOTE | 2020-11-23 18:02 | NUR ---
ASSUMED CARE OF PT AT 0730. PT A&0X4, COMPLAINED OF PAIN TO LEFT GROIN THIS AFTERNOON-TREATED WITH PRN TYLENOL WITH RELIEF. PT UP RECLINER FOR MEALS TODAY-TOLERATED WELL. TRACING AFIB ON THE MACHINE FASTENER. ON RA SAT UPPER 90'S. DENIES ANY SHORTNESS OF BREATH. VALDIVIA TO DEPENDENT DRAINAGE. PT UP WITH 1 ASSIST-WEAKNESS NOTED. CARDIO CONSULT IN PLACE. ONE DOSE IV LASIX GIVEN THIS AFTERNOON. AM ASSESSMENT CHARTED. MEDS PER MAR. CALL LIGHT WITHIN REACH. WILL CONTINUE PLAN OF CARE.
--- NOTE | 2020-11-23 20:00 | NUR ---
RECEIVED REPORT AND ASSUMED CARE OF PT, ASSESSMENT COMPLETED. SITTING UP IN RECLINER WITH FEET ELEVATED. LT GROIN REMAINS BRUISED AND TIGHT, NOT OUTSIDE OF MARKED LINES. ABLE TO DO PEDAL PUSHES BUT PAIN WITH MOVEMENT. SCROTAL EDEMA AND BRUISING NOTED. TELEMETRY ON SHOWING A-FIB WITH BBB. PT DISCUSSING HE WILL GO HOME ON SATURDAY OR SATURDAY. WILL CONT TO MONITOR AND ASSIST NEEDED.
[2020-11-24] VITALS (7 sets, daily range): BP systolic 117–147; BP diastolic 47–62
--- NOTE | 2020-11-24 06:30 | NUR ---
SLEPT WELL TONIGHT IN RECLINER. NO CHANGE IN ASSESSMENT. NO COMPLAINTS OF DISCOMFORT. HS GOALS OF REST AND SAFETY ACHIEVED.
[2020-11-24 07:20] LABS: HEMATOCRIT 24.9 % (42.0-52.0); HEMOGLOBIN 8.2 gm/dL (14.0-18.0); MCH 29.8 pg (26.0-34.0); MCV 90.1 fL (80.0-100.0); MPV 8.8 fl. (7.2-11.1); RBC 2.77 mil/uL (4.50-6.00); RDW-CV 16.7 % (10.5-14.5); WBC 12.4 thou/uL (4.0-11.0)
[2020-11-24 07:28] LABS: CALCIUM 7.8 mg/dL (8.5-10.1); POTASSIUM 4.1 mmol/L (3.5-5.1)
--- NOTE | 2020-11-24 12:50 | NUR ---
ASSUMED CARE OF PT AT 0730. PT A&0X4, DENIES ANY PAIN OR SHORTNESS OF BREATH AT THIS TIME. PT TRACING AFIB BBB ON THE SANFORIZER. LEFT GROIN HEMATOMA NOTED-NO FURTHER EXTENSION NOTED OUTSIDE OF LINE MARKINGS. ON RA SAT UPPER 90'S. PT UP WITH 1 ASSIST TO BSC. VALDIVIA TO DEPENDENT DRAINAGE. CARDIO CONSULT IN PLACE. PT GOAL FOR TODAY IS INCREASE ACTIVITY-UP TO CHAIR FOR MEALS AND WORK WITH THERAPIES AND IV STEROIDS. AM ASSESSMENT CHARTED. MEDICATIONS PER MAY. PT REPOSITIONS SELF WITH REMINDERS. HOURLY ROUNDING OBSERVED. BED IN LOW POSITION. CALL LIGHT WITHIN REACH. WILL CONTINUE PLAN OF CARE.
--- NOTE | 2020-11-24 15:12 | NUR ---
CM spoke with Pt's dtr, dtr adament that Pt dc to ARU. CM explained ARU qualifications, ARU consulted. Therapies to follow. CM informed dtr that if insurance denies, plan would be for SNF, unless family ok with Pt discharging to home.
[2020-11-25] VITALS: BP 142/67
[2020-11-25 04:00] VITALS: BP 138/62
[2020-11-25 08:20] LABS: HEMATOCRIT 25.6 % (42.0-52.0); HEMOGLOBIN 8.4 gm/dL (14.0-18.0); MCH 29.9 pg (26.0-34.0); MCHC 32.8 g/dL (28.0-37.0); MPV 8.6 fl. (7.2-11.1); RBC 2.82 mil/uL (4.50-6.00); RDW-CV 16.4 % (10.5-14.5); WBC 12.9 thou/uL (4.0-11.0)
[2020-11-25 09:20] LABS: CREATININE 0.9 mg/dL (0.6-1.3)
[2020-11-25 09:30] VITALS: BP 120/49
--- NOTE | 2020-11-25 09:33 | EKG ---
[place] [address] ELECTROCARDIOGRAM REPORT Name: CECIL OREILLY JR Room: [address] ADM IN .R.#: [id number] Admission: 11/20/20 Attend Phys: Alex Skinner Discharge: Date of : 40 Date of Service: 11/24/20924 Report #: [id number] THIS REPORT FOR: //name// [facility] Test Date: 2020-11-24 Test Time: 09:25:52 Pat Name: CECIL OREILLY Department: Room: [address] Gender: M Digital Coordinator: : 1940 Requested By: Ebony Rowland Order Number: [id number] Joaquim MD: Mariano Sims Measurements Intervals [place] Rate: 67 P: [place]: QRS: -112 QRSD: 179 T: 41 QT: 478 QTc: 505 Interpretive Statements Atrial fibrillation RBBB and LAFB Baseline wander in lead(s) V6 Compared to ECG 11/22/2020 10:50:45 No significant changes Electronically Signed On 11-25-2020 9:33:36 CDT by Mariano Sims [email or web address] <ELECTRONICALLY SIGNED> By: Mariano Sims MD, [facility] 11/25/2033 4 4 Mariano Sims MD, [facility] /EPI
[2020-11-25] MEDS ORDERED: ENOXAPARIN30 MG/0.3 SUBQ (11:22)
[2020-11-25] MEDS ORDERED: COZAAR 25 MG TA25 M1 PO (11:55)
[2020-11-25 12:00] VITALS: BP 99/47
--- NOTE | 2020-11-25 14:31 | NUR ---
Await insurance auth for ARU. If ARU denies, plan SNF. Following
[2020-11-25 16:00] VITALS: BP 119/66
--- NOTE | 2020-11-25 19:00 | NUR ---
ASSUMED PT CARE AT 0730. PT IS A&OX4 COOPERATIVE AND FRIENDLY. PT CONTINUES TO HAVE LARGE HEMATOMA FROM ATTEMPTED CARDIAC CATH SITES. ICE APPLIED AND PT REPORTS IT IS VERY EFFECTIVE. VALDIVIA PATENT AND DRAINING DARK YELLOW URINE. PT UP WITH STAND BY ASSIST DUE TO GROIN PAIN. SAFETY MEASURES IN PLACE. PT WAITING ON INSURANCE APPROVAL TO TRANSFER TO A REHAB FACILITY.
[2020-11-25 20:00] VITALS: BP 119/52
[2020-11-26 00:56] VITALS: BP 102/55
[2020-11-26 04:31] VITALS: BP 128/65
[2020-11-26 09:10] VITALS: BP 113/56
[2020-11-26 12:37] VITALS: BP 82/47
--- NOTE | 2020-11-26 14:36 | NUR ---
Assummed care at 0800. Pt is alert and oriented. Assessment done and charted. Pt is sitting up in the chair. Bruising noted at the left groin area from a cath procedure. Pt has a muñoz. Will continue to provide care to patient.
[2020-11-26 20:00] VITALS: BP 111/50
[2020-11-27 01:48] VITALS: BP 90/66
[2020-11-27 05:12] VITALS: BP 92/64
[2020-11-27 08:00] VITALS: BP 90/45
[2020-11-27 12:03] VITALS: BP 109/54
[2020-11-27 16:18] VITALS: BP 109/57
--- NOTE | 2020-11-27 18:43 | NUR ---
PATIENT RESTING IN RECLINER. CALL LIGHT WITHIN REACH. CHAIR ALARM ON. VALDIVIA SECURELY INPLACE TO DEPENDENT DRAINAGE. HEMATOMA TO LEFT GROIN IMPROVING. SCROTAL EDEMA DECREASING. IV TO LEFT HAND AND RIGHT FOREARM, SALINE LOCKED. TYLENOL X1 FOR HEADACHE. ALERT AND ORIENTED X4. ALL QUESTIONS AND CONCERNS ADDRESSED..
[2020-11-27 20:37] VITALS: BP 96/60
[2020-11-28 01:55] VITALS: BP 102/47
--- NOTE | 2020-11-28 06:27 | NUR ---
ASSUMED PT CARE AT APPROX. 1930. PT SITTING UPRIGHT IN CHAIR. PT A/OX4. VSS. PT IS TRACING AFIB BBB ON COATING LINE WORKER. PT IS ON RA. PT HAS A VALDIVIA IN PLACE FOR RETENTION. PT HAS SCROTAL EDEMA. PT HAS A LARGE LEFT FLANK HEMATOMA, WITH FIRM 1+ EDEMA TO BLLE. PT REQUESTED TO SIT UPRIGHT IN CHAIR DURING THE NOC. PT HAD MED. COLON, FORMED BM THIS AM. PT IS A SBA X2 W/ GAIT BELT FOR SAFETY. HOURLY ROUNDS COMPLETE CHARTED. MEDICATIONS ADMINISTERED PRESCRIBED. ASSESSMENTS COMPELTE CHARTED. FALL PRECAUTIONS IN PLACE FOR SAFETY. WILL CONT. TO MONITOR.
[2020-11-28 07:00] VITALS: BP 115/60
[2020-11-28 10:16] LABS: ABSOLUTE BASOPHILS 0.1 thou/uL (0.0-0.2); ABSOLUTE EOSINOPHILS 0.4 thou/uL (0.0-0.7); ABSOLUTE LYMPHOCYTES 1.3 thou/uL (0.8-5.3); ABSOLUTE MONOCYTES 1.8 thou/uL (0.0-1.2); ABSOLUTE NEUTROPHILS 7.8 thou/uL (1.6-8.1); BASOPHILS 0.8 %; EOSINOPHILS 3.5 %; HEMATOCRIT 26.6 % (42.0-52.0); HEMOGLOBIN 8.7 gm/dL (14.0-18.0); LYMPHOCYTES 11.4 %; MCH 30.2 pg (26.0-34.0); MCHC 32.9 g/dL (28.0-37.0); MCV 91.8 fL (80.0-100.0); MONOCYTES 15.9 %; MPV 7.3 fl. (7.2-11.1); NUCLEATED RBCS 0 /100WBC; PLATELET COUNT* 205 thou/uL (150-400); POLYS 68.4 %; RDW-CV 17.6 % (10.5-14.5); WBC 11.4 thou/uL (4.0-11.0)
[2020-11-28 12:00] VITALS: BP 91/49
--- NOTE | 2020-11-28 14:43 | NUR ---
Continue to await insurance auth for ARU. Therapies to see
[2020-11-28 16:00] VITALS: BP 117/57
--- NOTE | 2020-11-29 07:55 | CON ---
[address] [address] CONSULTATION Name: CECIL OREILLY JR Room: [address] IN ..#: [id number] Admission: 11/20/20 Attend Phys: Gabriella Prescott Discharge: 11/28/20 Date of : 40 Report #: [id number] THIS REPORT FOR: cc: Lew Adair Adam J DO Biggs, F. Douglas MD [facility] ~ DATE OF CONSULTATION: 11/27/2020 CARDIOLOGY CONSULTATION FOLLOWUP NOTE HISTORY OF PRESENT ILLNESS: Today, the patient feels well and has no complaints. He does not have any chest pain or shortness of breath. He is not having any issues with responsiveness. His scrotum is continuing to shrink down from its enlarged size. The hematoma in his left groin is continuing to shrink as well. He is feeling well and has no complaints. PHYSICAL EXAMINATION: VITAL SIGNS: Pulse 82, respirations 20, blood pressure 92/64, pulse ox, O2 sat 96, temperature 36.2. Later in the day, his blood pressure was higher, I believe, 118/70. Initial blood pressure was from 05:12 this morning. HEENT: Head is atraumatic. Eyes: Clear. NECK: Supple. There is no jugular venous distention or hepatojugular reflux. Thyroid is not enlarged. There is no adenopathy. SKIN: Warm and dry. Mucous membranes are moist. LUNGS: Clear to auscultation and percussion. HEART: Revealed normal first and second heart sound. There is soft S4. There is no S3. There are no murmurs, rubs, thrills, heaves or gallops. PMI is nondisplaced. ABDOMEN: Soft, flat, nontender. No palpable masses, no organomegaly. IMPRESSION: 1. Syncope. 2. Bradycardia. 3. Hypotension earlier this morning. 4. Non-ST segment elevation myocardial infarction apparently. 5. Coronary artery disease. 6. Status post coronary artery bypass graft surgery. 7. Status post aortic valve replacement. 8. Peripheral vascular disease. 9. Anemia. 10. Debility. 11. Paroxysmal atrial fibrillation, under good control now. RECOMMENDATIONS: He should continue to be observed and he should hopefully soon begin rehabilitation and ambulation. I [place] [address] CONSULTATION Name: CECIL OREILLY JR Room: [address]#: [id number] Admission: 11/20/20 Attend Phys: Gabriella Prescott Discharge: 11/28/20 Date of : 40 Report #: [id number] losartan. Apparently, he has been getting IV push hydralazine also, but I believe that is p.r.n. <ELECTRONICALLY SIGNED> By: Blanca Peter MD, [facility] 11/29/20 0755 0823 0933F. Joce Peter MD, FACC /nt
== END 2020-11-28 17:59 | DRG 280 ==
LOC: M.ERS 09:39 → M.2W 11:05 → M.TBA-ER 11:05 → M.2W 14:52
PROVIDERS: Emergency Medicine Emergency Medical Services; Family Medicine; Internal Medicine; Internal Medicine Cardiovascular Disease; Registered Nurse; ADMIT Internal Medicine; ATTEND Internal Medicine
PROC: B2111ZZ Fluoroscopy of Multiple Coronary Arteries using Low Osmolar Contrast (ICD-10-PCS; principal; 2020-11-21)
PROC: 4A023N7 Measurement of Cardiac Sampling and Pressure, Left Heart, Percutaneous Approach (ICD-10-PCS; principal; 2020-11-21)
PROC: 3E05317 Introduction of Other Thrombolytic into Peripheral Artery, Percutaneous Approach (ICD-10-PCS; 2020-11-22)
PROC: 30233N1 Transfusion of Nonautologous Red Blood Cells into Peripheral Vein, Percutaneous Approach (ICD-10-PCS; 2020-11-22)
DX: I21.4 Non-ST elevation (NSTEMI) myocardial infarction (principal); I50.33 Acute on chronic diastolic (congestive) heart failure; I95.2 Hypotension due to drugs; F41.9 Anxiety disorder, unspecified; I25.10 Atherosclerotic heart disease of native coronary artery without angina pectoris; I48.0 Paroxysmal atrial fibrillation; R53.81 Other malaise; I65.23 Occlusion and stenosis of bilateral carotid arteries; E87.5 Hyperkalemia; I72.8 Aneurysm of other specified arteries; D50.0 Iron deficiency anemia secondary to blood loss (chronic); I73.9 Peripheral vascular disease, unspecified; I11.0 Hypertensive heart disease with heart failure; I27.20 Pulmonary hypertension, unspecified; T50.905A Adverse effect of unspecified drugs, medicaments and biological substances, initial encounter; S30.1XXA Contusion of abdominal wall, initial encounter; S80.12XA Contusion of left lower leg, initial encounter; X58.XXXA Exposure to other specified factors, initial encounter; Z88.0 Allergy status to penicillin; Z91.013 Allergy to seafood; Z95.2 Presence of prosthetic heart valve; Z95.1 Presence of aortocoronary bypass graft; Y92.89 Other specified places as the place of occurrence of the external cause; Y93.89 Activity, other specified; Y99.8 Other external cause status

== ENCOUNTER 2020-11-28 17:37 | Inpatient (IN) | payer OTHER ==
[~2020-11-28] VITALS: Ht 180.3 cm; Wt 90.3 kg
[~2020-11-28 17:37] MED LIST changes: +ENOXAPARIN30 MG/0.3 SUBQ; +LASIX 40 MG TAB40 MG PO
[2020-11-28 18:15] VITALS: BP 95/52
[2020-11-28 19:22] VITALS: BP 99/74
[2020-11-29 04:12] LABS: HEMATOCRIT 25.6 % (42.0-52.0); HEMOGLOBIN 8.6 gm/dL (14.0-18.0); MCH 30.6 pg (26.0-34.0); MCHC 33.5 g/dL (28.0-37.0); MCV 91.4 fL (80.0-100.0); MPV 7.3 fl. (7.2-11.1); RBC 2.81 mil/uL (4.50-6.00); RDW-CV 17.5 % (10.5-14.5); WBC 11.1 thou/uL (4.0-11.0)
[2020-11-29 04:35] LABS: CALCIUM 8.1 mg/dL (8.5-10.1); CREATININE 0.9 mg/dL (0.6-1.3); POTASSIUM 3.8 mmol/L (3.5-5.1)
[2020-11-29 07:22] VITALS: BP 95/48
[2020-11-29 19:50] VITALS: BP 111/56
[2020-11-30 05:30] LABS: HEMATOCRIT 25.6 % (42.0-52.0); HEMOGLOBIN 8.6 gm/dL (14.0-18.0); MCHC 33.7 g/dL (28.0-37.0); MCV 91.9 fL (80.0-100.0); MPV 7.5 fl. (7.2-11.1); RBC 2.79 mil/uL (4.50-6.00); RDW-CV 17.5 % (10.5-14.5); WBC 8.6 thou/uL (4.0-11.0)
[2020-11-30 05:53] LABS: CALCIUM 8.1 mg/dL (8.5-10.1); POTASSIUM 3.8 mmol/L (3.5-5.1)
[2020-11-30 08:00] VITALS: BP 86/44
[2020-11-30 20:00] VITALS: BP 106/34
[2020-12-01 08:00] VITALS: BP 95/54
[2020-12-01 12:24] LABS: ABSOLUTE BASOPHILS 0.1 thou/uL (0.0-0.2); ABSOLUTE EOSINOPHILS 0.3 thou/uL (0.0-0.7); ABSOLUTE LYMPHOCYTES 0.9 thou/uL (0.8-5.3); ABSOLUTE MONOCYTES 1.3 thou/uL (0.0-1.2); ABSOLUTE NEUTROPHILS 6.2 thou/uL (1.6-8.1); BASOPHILS 0.8 %; HEMATOCRIT 25.1 % (42.0-52.0); HEMOGLOBIN 8.4 gm/dL (14.0-18.0); LYMPHOCYTES 10.6 %; MCH 30.7 pg (26.0-34.0); MCHC 33.6 g/dL (28.0-37.0); MCV 91.6 fL (80.0-100.0); MONOCYTES 15.1 %; MPV 7.1 fl. (7.2-11.1); NUCLEATED RBCS 0 /100WBC; PLATELET COUNT* 221 thou/uL (150-400); POLYS 70.5 %; RBC 2.75 mil/uL (4.50-6.00); RDW-CV 17.1 % (10.5-14.5); WBC 8.8 thou/uL (4.0-11.0)
[2020-12-01 12:35] LABS: APTT 44.2 Seconds (25.0-31.3); INR 1.7; PROTIME 17.3 Seconds (9.20-11.50)
[2020-12-01 12:38] LABS: ALBUMIN 2.4 g/dL (3.4-5.0); CALCIUM 8.2 mg/dL (8.5-10.1); CREATININE 1.1 mg/dL (0.6-1.3); POTASSIUM 4.1 mmol/L (3.5-5.1); TOTAL BILIRUBIN 4.4 mg/dL (<0.1-1.0)
[2020-12-01 19:43] VITALS: BP 117/64
[2020-12-02 07:30] VITALS: BP 104/48
[2020-12-02 09:31] VITALS: BP 104/48
[2020-12-02 11:11] LABS: HEMATOCRIT 22.6 % (42.0-52.0); HEMOGLOBIN 7.5 gm/dL (14.0-18.0)
[2020-12-02 22:00] VITALS: BP 85/39
[2020-12-03 07:30] VITALS: BP 101/52
[2020-12-03 08:05] VITALS: BP 101/52
[2020-12-03 20:00] VITALS: BP 85/41
[2020-12-04 08:00] VITALS: BP 94/50
[2020-12-04 19:56] VITALS: BP 84/42
[2020-12-05 07:35] VITALS: BP 80/48
[2020-12-05 08:08] VITALS: BP 107/47
[2020-12-05 10:57] VITALS: BP 83/59
[2020-12-05 13:15] VITALS: BP 88/41
--- NOTE | 2020-12-05 14:54 | EKG ---
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
[2020-12-05 15:56] VITALS: BP 96/49
[2020-12-05 19:00] VITALS: BP 119/48
[2020-12-06 07:30] VITALS: BP 106/44
[2020-12-06 08:00] VITALS: BP 106/44
[2020-12-06 19:00] VITALS: BP 90/41
[2020-12-07 07:11] VITALS: BP 106/47
[2020-12-07 07:29] LABS: MCH 31.5 pg (26.0-34.0); MCHC 33.3 g/dL (28.0-37.0); MCV 94.6 fL (80.0-100.0); RBC 2.54 mil/uL (4.50-6.00); RDW-CV 20.4 % (10.5-14.5); WBC 8.5 thou/uL (4.0-11.0)
[2020-12-07 07:44] LABS: ALBUMIN 2.2 g/dL (3.4-5.0); CREATININE 0.9 mg/dL (0.6-1.3); POTASSIUM 3.6 mmol/L (3.5-5.1); TOTAL PROTEIN 5.6 g/dL (6.4-8.2)
[2020-12-07 19:20] VITALS: BP 119/49
[2020-12-08 08:00] VITALS: BP 102/45
[2020-12-08 20:00] VITALS: BP 134/67
[2020-12-09 08:00] VITALS: BP 110/51
[2020-12-09 19:25] VITALS: BP 139/71
[2020-12-10 04:28] LABS: HEMATOCRIT 28.1 % (42.0-52.0); HEMOGLOBIN 9.2 gm/dL (14.0-18.0); MCH 31.6 pg (26.0-34.0); MCHC 32.6 g/dL (28.0-37.0); MPV 6.6 fl. (7.2-11.1); RBC 2.9 mil/uL (4.50-6.00); RDW-CV 20.9 % (10.5-14.5)
[2020-12-10 04:50] LABS: CALCIUM 8.2 mg/dL (8.5-10.1); CREATININE 0.8 mg/dL (0.6-1.3); POTASSIUM 3.7 mmol/L (3.5-5.1)
[2020-12-10 08:00] VITALS: BP 144/63
[2020-12-10 19:00] VITALS: BP 123/53
[2020-12-11 04:24] LABS: CALCIUM 8.2 mg/dL (8.5-10.1); CREATININE 0.9 mg/dL (0.6-1.3); POTASSIUM 3.2 mmol/L (3.5-5.1)
[2020-12-11 07:30] VITALS: BP 106/48
[2020-12-11 19:35] VITALS: BP 135/51
[2020-12-12 04:42] LABS: CALCIUM 8.4 mg/dL (8.5-10.1); CREATININE 0.9 mg/dL (0.6-1.3); POTASSIUM 3.7 mmol/L (3.5-5.1)
[2020-12-12 07:33] VITALS: BP 116/80
[2020-12-12 09:26] LABS: HEMATOCRIT 28.9 % (42.0-52.0); HEMOGLOBIN 9.4 gm/dL (14.0-18.0); MCH 31.4 pg (26.0-34.0); MCHC 32.6 g/dL (28.0-37.0); MCV 96.3 fL (80.0-100.0); MPV 7.2 fl. (7.2-11.1); RDW-CV 19.8 % (10.5-14.5); WBC 7.3 thou/uL (4.0-11.0)
--- NOTE | 2020-12-12 14:11 | EKG ---
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
[2020-12-12 19:00] VITALS: BP 115/45
[2020-12-13 07:30] VITALS: BP 121/48
[2020-12-13 19:00] VITALS: BP 138/46
[2020-12-14 04:42] LABS: HEMATOCRIT 30.2 % (42.0-52.0); HEMOGLOBIN 10.1 gm/dL (14.0-18.0); MCH 31.7 pg (26.0-34.0); MCHC 33.4 g/dL (28.0-37.0); MCV 95.1 fL (80.0-100.0); MPV 6.8 fl. (7.2-11.1); RBC 3.17 mil/uL (4.50-6.00); RDW-CV 19.1 % (10.5-14.5); WBC 6.4 thou/uL (4.0-11.0)
[2020-12-14 04:44] LABS: CALCIUM 8.3 mg/dL (8.5-10.1)
[2020-12-14 07:30] VITALS: BP 104/36
[2020-12-14 19:25] VITALS: BP 135/54
[2020-12-15 04:33] LABS: CALCIUM 8.6 mg/dL (8.5-10.1); CREATININE 0.8 mg/dL (0.6-1.3); POTASSIUM 3.4 mmol/L (3.5-5.1)
[2020-12-15 08:16] VITALS: BP 127/54
--- NOTE | 2020-12-15 08:18 | EKG ---
[place] [address] ELECTROCARDIOGRAM REPORT Name: CECIL OREILLY JR Room: [address] ADM IN M.R.#: [id number] Admission: 11/28/20 Attend Phys: Imtiaz Cifuentes MD Discharge: Date of : 40 Date of Service: 12/14/20 1531 Report #: [id number] THIS REPORT FOR: //name// [facility] Test Date: 2020-12-14 Test Time: 15:31:39 Pat Name: CECIL OREILLY Department: Room: [address] Gender: M Colorman: SB : 1940 Requested By: Bob Grady Order Number: [id number] Reading MD: Joce Peter Measurements Intervals [place] Rate: 69 P: [place]: QRS: 244 QRSD: 220 T: 37 QT: 519 QTc: 556 Interpretive Statements Atrial fibrillation Nonspecific IVCD with LAD Baseline wander in lead(s) V1,V5 Compared to ECG 12/10/2020 03:40:46 Intraventricular conduction delay now present Left anterior fascicular block no longer present Right bundle-branch block no longer present Electronically Signed On 12-15-2020 8:18:36 CDT by Joce Peter [email or web address] <ELECTRONICALLY SIGNED> By: Blanca Peter MD, ABHINAV 12/15/20817 30 30 Blanca Peter MD, [facility]ITAL[facility] /EPI
[2020-12-15 20:00] VITALS: BP 127/61
[2020-12-16 08:00] VITALS: BP 142/78
[2020-12-16 09:51] LABS: CALCIUM 8.5 mg/dL (8.5-10.1); CREATININE 0.9 mg/dL (0.6-1.3); POTASSIUM 3.2 mmol/L (3.5-5.1)
[2020-12-16] MEDS ORDERED: CEPHALEXIN500 MG PO (13:21)
[2020-12-16] MEDS ORDERED: LEXAPRO 10 MG T10 M1 PO (13:23)
[2020-12-16] MEDS ORDERED: FLOMAX0.4 MG PO (13:24)
[2020-12-16 13:27] VITALS: BP 104/48
[2020-12-16 16:20] VITALS: BP 104/48
[2020-12-16 18:17] LABS: CALCIUM 8.5 mg/dL (8.5-10.1); CREATININE 0.9 mg/dL (0.6-1.3); POTASSIUM 3.8 mmol/L (3.5-5.1)
[2020-12-16 19:56] VITALS: BP 116/52
[2020-12-17 04:21] LABS: CALCIUM 8.4 mg/dL (8.5-10.1); CREATININE 0.8 mg/dL (0.6-1.3); MAGNESIUM 1.3 mg/dL (1.8-2.4); POTASSIUM 3.6 mmol/L (3.5-5.1)
[2020-12-17 07:40] VITALS: BP 109/51
[2020-12-17] MEDS ORDERED: MAGNESIUM GLUCO30 MG PO (10:36)
[2020-12-17] MEDS ORDERED: MINOCYCLINE HC100 M2 PO (10:37)
[2020-12-17] MEDS ORDERED: BUSPIRONE HCL5 MG PO (10:37)
== END 2020-12-17 11:15 | disposition home health service (06) | DRG 947 ==
LOC: M.REH 17:37
PROVIDERS: Internal Medicine; Internal Medicine Cardiovascular Disease; ADMIT Physical Medicine & Rehabilitation; ATTEND Physical Medicine & Rehabilitation
DX: R53.81 Other malaise (principal); I21.4 Non-ST elevation (NSTEMI) myocardial infarction; I50.33 Acute on chronic diastolic (congestive) heart failure; L03.116 Cellulitis of left lower limb; E87.1 Hypo-osmolality and hyponatremia; I48.19 Other persistent atrial fibrillation; S30.1XXA Contusion of abdominal wall, initial encounter; I95.2 Hypotension due to drugs; I27.20 Pulmonary hypertension, unspecified; I65.23 Occlusion and stenosis of bilateral carotid arteries; I25.10 Atherosclerotic heart disease of native coronary artery without angina pectoris; E78.5 Hyperlipidemia, unspecified; I73.9 Peripheral vascular disease, unspecified; I11.0 Hypertensive heart disease with heart failure; R04.0 Epistaxis; F41.9 Anxiety disorder, unspecified; I48.0 Paroxysmal atrial fibrillation; R33.9 Retention of urine, unspecified; E87.70 Fluid overload, unspecified; I72.9 Aneurysm of unspecified site; T50.905A Adverse effect of unspecified drugs, medicaments and biological substances, initial encounter; S30.22XA Contusion of scrotum and testes, initial encounter; Z88.8 Allergy status to other drugs, medicaments and biological substances; Z88.0 Allergy status to penicillin; Z91.013 Allergy to seafood; Z87.891 Personal history of nicotine dependence; Z88.7 Allergy status to serum and vaccine; Z95.1 Presence of aortocoronary bypass graft; Z95.2 Presence of prosthetic heart valve; Y92.89 Other specified places as the place of occurrence of the external cause